=== PATIENT | male | born 1980 | race Caucasian/White ===

== ENCOUNTER 2017-09-30 18:49 | Emergency (ER) | payer OTHER ==
[~2017-09-30] VITALS: Ht 180.3 cm; Wt 93.2 kg
[2017-09-30 19:11] VITALS: BP 134/81
== END 2017-09-30 21:11 | disposition home or self-care (01) ==
LOC: ED 20:43
DX: J20.8 Acute bronchitis due to other specified organisms (principal); B97.89 Other viral agents as the cause of diseases classified elsewhere; R11.0 Nausea; F17.210 Nicotine dependence, cigarettes, uncomplicated; Z59.0 Homelessness
CPT/HCPCS: 71020; 93005; 99284

== ENCOUNTER 2018-04-04 00:29 | Emergency (ER) | payer SELFPAY ==
[~2018-04-04] VITALS: Ht 180.3 cm; Wt 100.0 kg
[2018-04-04 00:30] VITALS: BP 123/78
[2018-04-04] MEDS ORDERED: DICYCLOMINE 20 MG TABLET PO ONE (01:00)
[2018-04-04] MEDS ORDERED: ONDANSETRON ODT 4 MG PO ONE (01:00)
[2018-04-04] MEDS ORDERED: ONDANSETRON ODT 4 MG ONE (01:02)
[2018-04-04] MEDS ORDERED: DICYCLOMINE 20 MG TABLET ONE (01:03)
[2018-04-04 01:04] LABS: BASOPHILS # (AUTO) 0.07 x10^3/uL (0-0.1); BASOPHILS % (AUTO) 1 % (0-1); EOSINOPHILS # (AUTO) 0.24 x10^3/uL (0-0.4); EOSINOPHILS % (AUTO) 3 % (1-7); LYMPHOCYTES # (AUTO) 4.54 x10^3/uL (1-3.4); LYMPHOCYTES % (AUTO) 55 % (22-44); MD NO; MEAN CORPUSCULAR HEMOGLOBIN 30.4 pg (27.5-34.5); MEAN CORPUSCULAR HGB CONC 33.6 g/dL (33.2-36.2); MEAN CORPUSCULAR VOLUME 90.4 fL (81-97); MEAN PLATELET VOLUME 8.3 fL (7.4-10.4); MONOCYTES # (AUTO) 0.76 x10^3/uL (0.2-0.8); MONOCYTES % (AUTO) 9 % (2-9); NEUTROPHILS # (AUTO) 2.72 x10^3/uL (1.8-6.8); NEUTROPHILS % (AUTO) 33 % (42-75); PLATELET COUNT 304 x10^3/uL (130-400); RED BLOOD COUNT 4.81 x10^6/uL (4.38-5.82); RED CELL DISTRIBUTION WIDTH 13.4 % (9.4-14.8)
[2018-04-04 01:16] LABS: ALANINE AMINOTRANSFERASE 27 U/L (12-78); ALBUMIN 3.7 g/dL (3.4-5.0); ANION GAP 6 mmol/L (5-15); CALCIUM 9.1 mg/dL (8.5-10.1); CHLORIDE 112 mmol/L (98-107); CREATININE 1.02 mg/dL (0.7-1.3)
[2018-04-04 01:19] LABS: ALKALINE PHOSPHATASE 91 U/L (45-117); BILIRUBIN,TOTAL 0.4 mg/dL (0.2-1.0); TOTAL PROTEIN 7.5 g/dL (6.4-8.2)
[2018-04-04 01:45] LABS: MICROSCOPIC NOT IND
[2018-04-04 01:50] LABS: CULTURE INDICATED? NO
== END 2018-04-04 02:10 | disposition home or self-care (01) ==
LOC: ED 02:04
DX: R10.84 Generalized abdominal pain (principal); Z72.9 Problem related to lifestyle, unspecified
CPT/HCPCS: 36415; 80053; 81003; 83690; 85025; 99284; Q0162

== ENCOUNTER 2019-04-20 18:18 | Emergency (ER) | payer OTHER ==
[~2019-04-20] VITALS: Ht 180.3 cm; Wt 96.3 kg
[2019-04-20 18:29] VITALS: BP 126/79
--- NOTE | 2019-04-20 18:46 | NUR ---
PT STATES HE CAME IN FOR A FEVER AND NAUSEA. PT IS ABLE TO ANSWER QUESTIONS APPROPRIATELY BUT OCCASSIONALY HAS INAPPROPRIATE CONVERSATION REGARDING BEING IN [place] [employer]. PT STATES HE HAS BEEN NAUSEAS FOR A FEW DAYS, STATES [place] C[place] AND THAT HE IS HOMELESS. NADN. NUGENT.
--- NOTE | 2019-04-20 18:50 | NUR ---
REPORT GIVEN TO ALEX LUU
[2019-04-20] MEDS ORDERED: ONDANSETRON ODT 4 MG ONE (18:58)
[2019-04-20] MEDS ORDERED: ONDANSETRON ODT 4 MG PO ONE (19:00)
== END 2019-04-20 19:12 | disposition home or self-care (01) ==
LOC: ED 19:10
DX: R11.0 Nausea (principal); Z59.0 Homelessness; Z72.9 Problem related to lifestyle, unspecified
CPT/HCPCS: 99283; Q0162